=== PATIENT | male | born 1995 | race Caucasian/White ===

== ENCOUNTER 2016-08-08 15:18 | Emergency (ER) | payer OTHER ==
--- NOTE | 2016-08-08 16:23 | DX ---
Left Shoulder , 2 Views History: Pain post trauma. Comparison: May 30, 2016 Findings: There is a recurrent anterior dislocation of the left humeral head. There may be a Hill-Sac hs deformity. A small bony density projecting medially to the upper humeral head may represent a smal l anteriorly displaced glenoid fragment. Impression: Anterior dislocation of the left shoulder.
[2016-08-08] MEDS ORDERED: fentaNYL 100 MCG/2 ML INJ IVP ONE ×2 (16:32→16:58)
[2016-08-08] MEDS ORDERED: fentaNYL 100 MCG/2 ML INJ ONE (16:32)
--- NOTE | 2016-08-08 16:57 | EDPHY ---
H & P Stated Complaint: lEFT SHOULDER DISLOCATION. PLAYING THE DRINKING GAME WHEN IT WENT OUT. - Personal History Current Tetanus/Diphtheria Vaccine: Yes Current Tetanus Diphtheria and Acellular Pertussis (TDAP): Yes Tetanus Vaccine Date: < 10 YEARS - Medical/Surgical History Hx Asthma: No Hx Chronic Respiratory Disease: No Hx Diabetes: No Hx Cardiac Disease: No Hx Renal Disease: No Hx Cirrhosis: No Hx Alcoholism: No Hx HIV/AIDS: No Hx Splenectomy or Spleen Trauma: No Other PMH: PMH: new recent diagnosis of epilepsy in April 2015. Shoulder dislocation bilateral. PSH: tonsillectomy - Social History Smoking Status: Current every day smoker Time Seen by Provider: 08/08/16 15:46 HPI/ROS: Chief complaint: Left shoulder dislocation History of present illness: This is a pleasant 20-year-old male who presents to the emergency department for left shoulder dislocation. Patient has a history of recurrent bilateral shoulder dislocations. Today he was playing a game and throwing dice when his shoulder dislocated. He has had pain in it since then. Inability to move it. He denies a history of direct trauma. No report of abnormal coolness or paresthesias in the arm. No other complaints. Review of systems: A 10 point review of systems was obtained and other than described above was negative (Freddy Swift) - Physical Exam Exam: General Appearance: Alert, nontoxic . Eyes: Pupils equal and round no injection. Respiratory: Chest is non tender, lungs are clear to auscultation. Cardiovascular: Regular rate and rhythm, radial pulses 2+ bilaterally Gastrointestinal: Abdomen is soft and non tender, no masses, bowel sounds normal. Musculoskeletal: Obvious deformity left shoulder. The rest left arm is unremarkable with good movement in the elbow, wrist and digits of the hand. Neurological: Alert and oriented. Sensation intact throughout the left arm Skin: No rashes or lesions. (Freddy Swift) Constitutional: Initial Vital Signs Temperature (C) 36.3 C 08/08/16 15:22 Heart Rate 126 H 08/08/16 15:22 Respiratory Rate 17 08/08/16 15:22 Blood Pressure 142/92 H 08/08/16 15:22 O2 Sat (%) 95 08/08/16 15:22 O2 Delivery Mode [Post Room Air Procedure 4th] O2 Delivery Mode [Post Nasal Cannula Procedure 3rd] O2 Delivery Mode [Post Non-Rebreather Mask Procedure 2nd] O2 Delivery Mode [Post Non-Rebreather Mask Procedure 1st] O2 Delivery Mode [Procedural Non-Rebreather Mask 2nd] O2 Delivery Mode [Procedural Non-Rebreather Mask 1st] O2 Delivery Mode [.Immediate Non-Rebreather Mask Pre-Procedure] O2 Delivery Mode Room Air O2 (L/minute) [Post Procedure 2 3rd] O2 (L/minute) [Post Procedure 15 2nd] O2 (L/minute) [Post Procedure 15 1st] O2 (L/minute) [Procedural 2nd] 15 O2 (L/minute) [Procedural 1st] 15 O2 (L/minute) [.Immediate Pre- 15 Procedure] O2 (L/minute) 2 Allergies/Adverse Reactions: No Known Allergies Allergy (Unverified 03/31/16 20:29) Home Medications: Medication Instructions Recorded Keppra 02/11/16 VIMPAT 08/08/16 Medical Decision Making - Diagnostics Imaging: X-ray left shoulder shows an anterior dislocation Post reduction x-ray shows good anatomic alignment (Freddy Swift) Procedures: Conscious sedation performed by my attending physician Dr. Ron Shipman Procedure: Dislocation reduction. The shoulder was reduced in the usual fashion without complications. Post reduction the patient's neurovascular exam is normal. Post reduction x-ray demonstrates reduction of the joint to the anatomic position. The procedure was performed by myself. (Freddy Swift) Procedure: Procedural sedation. Indication: Shoulder dislocation reduction. A pre-sedation evaluation was completed on the patient just prior to the procedure. Patient is an appropriate candidate for procedural sedation with ASA class 1 E. The risks of the sedation were discussed including but not limited to dysrhythmia, need for airway intervention or general anesthesia, disability, ; and verbal consent obtained. A timeout was observed and patient's identity confirmed. The patient was sedated with 110 mg of propofol and 100 mcg of fentanyl. The patient was monitored with continuous pulse oximetry, capnography, and monitor tech. There were no complications and no significant hypoxemia. I remained at the bedside for the sedation. The total time I spent in the procedural sedation was 20 minutes. (Ron Shipman) ED Course/Re-evaluation: Patient seen in conjunction with my secondary supervising physician Dr. Ron Aaron. Patient presents to the emergency department for suspected left shoulder dislocation. The arm is neurovascularly intact. X-ray confirms a dislocation. Ultimately patient is consciously sedated and it is reduced. Post reduction films show good alignment. He remains neurovascularly intact. Patient is discharged home. He declined pain medication. Home care is discussed. Return precautions are given. Patient voiced understanding and agreement with plan. (Freddy Swift) Differential Diagnosis: Included but not limited to contusion, sprain, strain, fracture, joint dislocation (Freddy Swift) - Data Points Medications Given: Discontinued Medications Fentanyl (Sublimaze) 100 mcg IVP EDNOW ONE Stop: 08/08/16 16:33 Last Admin: 08/08/16 16:58 Dose: 100 mcg Fentanyl (Sublimaze) 100 mcg IVP EDNOW ONE Stop: 08/08/16 16:59 Last Admin: 08/08/16 16:59 Dose: 100 mcg Departure - Departure Disposition: Home, Routine, Self-Care Clinical Impression: Shoulder dislocation Condition: Good Instructions: Shoulder Dislocation (ED) Additional Instructions: Follow-up with your orthopedic doctor for recheck If symptoms worsen or new symptoms develop return to the emergency department for recheck Referrals: NONE *PRIMARY CARE P,. [Primary Care Provider] - As per Instructions Adi Suarez MD [Medical Doctor] - As per Instructions
[2016-08-08] MEDS ORDERED: PROPOFOL 200 MG/20 ML VIAL ONE (17:03)
[2016-08-08] MEDS ORDERED: PROPOFOL 200 MG/20 ML VIAL IVP ONE ×3 (17:05→17:08)
--- NOTE | 2016-08-08 17:43 | DX ---
Shoulder Minimum 2 Views CLNLRB L History: Dislocation reduction. Comparison exam: 1 hour 30 minutes prior. Findings: From prior examination, there has been interval reduction in left shoulder dislocation. Ali gnment is currently normal. No fracture identified. Impression: Left shoulder dislocation reduction.
[2016-08-08 18:05] VITALS: BP 119/57; PULSE 76; RESP 18; TEMP 98.1; O2SAT 94
== END 2016-08-08 18:04 | disposition home or self-care (01) ==
PROC: 0RSKXZZ Reposition Left Shoulder Joint, External Approach (ICD-10-PCS; principal; 2016-08-08)
DX: S43.015A Anterior dislocation of left humerus, initial encounter (principal); F17.200 Nicotine dependence, unspecified, uncomplicated; X50.0XXA Overexertion from strenuous movement or load, initial encounter; Y93.89 Activity, other specified
CPT/HCPCS: J2704; J3010

== ENCOUNTER 2016-10-18 10:25 | Emergency (ER) | payer OTHER ==
[2016-10-18] MEDS ORDERED: PROPOFOL 200 MG/20 ML VIAL ONE (10:51)
--- NOTE | 2016-10-18 10:52 | EDPHY ---
H & P Stated Complaint: left shoulder dislocation post siezure Source: Patient, EMS, Old records Exam Limitations: No limitations - Personal History Current Tetanus/Diphtheria Vaccine: Yes Current Tetanus Diphtheria and Acellular Pertussis (TDAP): Yes Tetanus Vaccine Date: < 10 YEARS - Medical/Surgical History Hx Asthma: No Hx Chronic Respiratory Disease: No Hx Diabetes: No Hx Cardiac Disease: No Hx Renal Disease: No Hx Cirrhosis: No Hx Alcoholism: No Hx HIV/AIDS: No Hx Splenectomy or Spleen Trauma: No Other PMH: PMH: new recent diagnosis of epilepsy in April 2015. Shoulder dislocation bilateral. PSH: tonsillectomy - Social History Smoking Status: Current some day smoker HPI/ROS: CHIEF COMPLAINT: Seizure, shoulder dislocation HISTORY OF PRESENT ILLNESS: Patient is a history of epilepsy with prophylaxis of Keppra and Vimpat. He has been taking his medication as prescribed. But today he notes that he had a seizure this morning. EMS was contacted. At the time of arrival he was mildly postictal in complaining of left shoulder pain. He feels he is dislocated. He has no complaints anywhere else other than his left shoulder. Pain is severe. He received 200 mcg of fentanyl IV and route. This has made it tolerable but still painful. He has no numbness or tingling distally. He has a history of recurrent dislocations due to seizures. He has been seen by Dr. Suarez but has refused to proceed surgical intervention. No other associated complaints or modifying factors. PRIOR ORTHO INJURIES: Recurrent shoulder dislocations ESTABLISHED ORTHOPEDIST: Dr. Suarez REVIEW OF SYSTEMS: Ten systems reviewed and are negative unless otherwise noted in the HPI EXAMINATION General Appearance: Alert, no distress ENT: Airway is widely patent. No injury to the tongue. Cardiovascular: Pulses normal throughout. Symmetric radial pulses 2+. Brisk cap refill Neurological: A&O, sensory symmetric, strength symmetric Skin: Warm and dry, no rash. No ecchymosis, lacerations or abrasions. Extremities: The right upper extremity and both lower extremities are intact with normal range of motion. The left upper extremity has deformity to the left shoulder with squaring of the joint. There is tenderness to palpation. Range of motion not tested secondary to dislocation and pain. He is neurovascular intact distal to this suspected dislocation Psychiatric: Mood and affect normal DIFFERENTIAL DIAGNOSES: Including but not limited to shoulder dislocation, shoulder fracture, humeral fracture, AC sprain, seizure, closed head injury MDM: 10:40 a.m. Reports a seizure with left shoulder pain and obvious dislocation on examination. He is neurovascular intact distally. He has no headache. No chest pain. No back pain. X-ray did does reveal a dislocated shoulder on the left without any obvious fracture. We will plan for sedation and reduction. 11:40 a.m. Patient is awake and conversing appropriately. Post reduction film reveals anatomic alignment with good reduction. No obvious fracture by my interpretation. Radiology interpretation pending. He remains neurovascular intact in a sling and swath. Upon further discussion with the patient and his girlfriend is now at bedside, he admits to not taking his Keppra this morning because he is out of it. They were actually on the way to the pharmacy before this happened. He did not recall this earlier during his postictal state. He did take his Vimpat last night as prescribed. We will provide IV dosing here. He will be discharged home and will proceed directly to the pharmacy to take his medication further. He is also referred to Orthopedics for consultation for definitive care of the recurrent shoulder dislocations. PROCEDURE: Closed reduction of shoulder dislocation Consent: Verbal Location: Left shoulder Anesthesia: Procedural sedation by Dr. Valadez Procedure: After time-out, procedural sedation was administered by Dr. Valadez. Reduction of the shoulder was performed by me personally. This was done with traction, counter traction and external rotation. There was excellent reduction without complication. He was neurovascular intact post reduction with brisk cap refill and 2+ radial pulse. Complications: None Post-reduction film: Adequate reduction as interpreted by me. ED Precautions: Worsening pain. Erythema, edema, cyanosis, pallor, paresthesia or anesthesia. SUPERVISION: This patient was independently evaluated without direct examination by the attending physician. Case was discussed with attending physician. Procedural sedation by Dr. Valadez. (Waylon Alvarez) Constitutional: Initial Vital Signs Temperature (C) 98.2 F 10/18/16 10:25 Heart Rate 102 H 10/18/16 10:25 Respiratory Rate 20 10/18/16 10:25 Blood Pressure 156/103 H 10/18/16 10:25 O2 Sat (%) 95 10/18/16 10:25 O2 Delivery Mode [Post Non-Rebreather Mask Procedure 2nd] O2 Delivery Mode [Post Non-Rebreather Mask Procedure 1st] O2 Delivery Mode [Procedural Non-Rebreather Mask 2nd] O2 Delivery Mode [Procedural Non-Rebreather Mask 1st] O2 Delivery Mode Room Air O2 (L/minute) [Post Procedure 10 2nd] O2 (L/minute) [Post Procedure 10 1st] O2 (L/minute) [Procedural 2nd] 10 O2 (L/minute) [Procedural 1st] 10 Allergies/Adverse Reactions: No Known Allergies Allergy (Verified 10/18/16 10:34) Home Medications: Medication Instructions Recorded Keppra 02/11/16 VIMPAT 08/08/16 oxyCODONE HCL/ACETAMINOPHEN 1 each PO Q4-6PRN PRN #14 tablet 10/18/16 [Percocet 5-325 mg Tablet] Medical Decision Making Other Provider: Procedure: Conscious sedation. Indication: Shoulder dislocation reduction. The patient is an appropriate candidate to tolerate procedural sedation. The patient's vitals signs and mental status are appropriate. The risks, benefits and alternatives of the sedation were discussed with the patient. The patient is ASA classification 1. The patient's Mallampati airway score was 1 and the patient did meet the 3-3-2 airway measurements. A time out was completed. The patient was sedated with 110mg IV Propofol and 25mg IV Ketamine. The patient was monitored with continuous pulse oximetry, gambling monitor and end tidal CO2. There were no complications and no significant hypoxemia. I performed the sedation and RADHA Alvarez performed the reduction. The total time I spent at the bedside during the procedural sedation was 20 minutes. The patient was examined after the procedural sedation and has returned to their pre-sedation baseline with normal vital signs and a normal examination. (Dakota Valadez) - Data Points Laboratory Results: Laboratory Results 10/18/16 10:37 10/18/16 10:37 10/18/16 10/18/16 10/18/16 10:37 10:37 10:37 WBC 9.36 10^3/uL 10^3/uL (3.80-9.50) RBC 5.43 10^6/uL 10^6/uL (4.40-6.38) Hgb 16.8 g/dL g/dL (13.7-17.5) Hct 47.8 % % (40.0-51.0) MCV 88.0 fL fL (81.5-99.8) MCH 30.9 pg pg (27.9-34.1) MCHC 35.1 g/dL g/dL (32.4-36.7) RDW 11.7 % % (11.5-15.2) Plt Count 296 10^3/uL 10^3/uL (150-400) MPV 9.8 fL fL (8.7-11.7) Neut % (Auto) 69.3 % % (39.3-74.2) Lymph % (Auto) 17.8 % % (15.0-45.0) [place] % (Auto) 7.9 % % (4.5-13.0) Eos % (Auto) 3.5 % % (0.6-7.6) Baso % (Auto) 0.9 % % (0.3-1.7) Nucleat RBC Rel Count 0.0 % % (0.0-0.2) Absolute Neuts (auto) 6.48 10^3/uL 10^3/uL (1.70-6.50) Absolute Lymphs (auto) 1.67 10^3/uL 10^3/uL (1.00-3.00) Absolute Monos (auto) 0.74 10^3/uL 10^3/uL (0.30-0.80) Absolute Eos (auto) 0.33 10^3/uL 10^3/uL (0.03-0.40) Absolute Basos (auto) 0.08 10^3/uL 10^3/uL (0.02-0.10) Absolute Nucleated RBC 0.00 10^3/uL 10^3/uL (0-0.01) Immature Gran % 0.6 % % (0.0-1.1) Immature Gran # 0.06 10^3/uL 10^3/uL (0.00-0.10) Sodium 139 mEq/L mEq/L (134-144) Potassium 5.1 mEq/L mEq/L (3.5-5.2) Chloride 106 mEq/L mEq/L (97-110) Carbon Dioxide 19 mEq/l L mEq/l (22-31) Anion Gap 14 mEq/L mEq/L (8-16) BUN 17 mg/dL mg/dL (7-23) Creatinine 0.9 mg/dL mg/dL (0.7-1.3) Estimated GFR > 60 Glucose 179 mg/dL H mg/dL (70-100) Calcium 9.7 mg/dL mg/dL (8.5-10.4) Magnesium 1.8 mg/dL mg/dL (1.6-2.3) Levetiracetam Pending Departure - Departure Disposition: Home, Routine, Self-Care Clinical Impression: Recurrent seizures Dislocation of shoulder, left, closed Qualifiers: Encounter type: initial encounter Qualified Code(s): S43.005A - Unspecified dislocation of left shoulder joint, initial encounter Condition: Good Instructions: Shoulder Dislocation (ED) Additional Instructions: Keep sling in place for the next 24-48 hours. Remove for range of motion of the elbow only. Follow up with established Orthopedics orthopedics telephone technician as listed. Referrals: Patient,NotPresent [Unknown] - As per Instructions Adi Suarez MD [Medical Doctor] - As per Instructions Benny Caldwell MD [Medical Doctor] - As per Instructions Prescriptions: oxyCODONE HCL/ACETAMINOPHEN [Percocet 5-325 mg Tablet] 1 each PO Q4-6PRN PRN # 14 tablet PRN Reason: Pain, Breakthrough
[2016-10-18 10:59] LABS: % IMMATURE GRANULYOCYTES 0.6 % (0.0-1.1); ABSOLUTE IMMATURE GRANULOCYTES 0.06 10^3/uL (0.00-0.10); ADD DIFF? NO; ADD MORPH? NO; ADD SCAN? NO; ANION GAP 14 mEq/L (8-16); ATYPICAL LYMPHOCYTE FLAG 30 (0-99); CALCIUM 9.7 mg/dL (8.5-10.4); CARBON DIOXIDE 19 mEq/l (22-31); CHLORIDE 106 mEq/L (97-110); CREATININE 0.9 mg/dL (0.7-1.3); FRAGMENT RBC FLAG 0 (0-99); GLOMERULAR FILTRATION RATE > 60; GLUCOSE 179 mg/dL (70-100); HEMATOCRIT 47.8 % (40.0-51.0); HEMOGLOBIN 16.8 g/dL (13.7-17.5); LEFT SHIFT FLG 0 (0-99); LIPEMIA HEMOLYSIS FLAG 90 (0-99); MAGNESIUM 1.8 mg/dL (1.6-2.3); MEAN CELL HEMOGLOBIN 30.9 pg (27.9-34.1); MEAN CELL HEMOGLOBIN CONCENTR. 35.1 g/dL (32.4-36.7); MEAN PLATELET VOLUME 9.8 fL (8.7-11.7); PLATELET CLUMPS FLAG 0 (0-99); PLATELET COUNT 296 10^3/uL (150-400); POTASSIUM 5.1 mEq/L (3.5-5.2); RED BLOOD CELL COUNT 5.43 10^6/uL (4.40-6.38); RED CELL DISTRIBUTION WIDTH 11.7 % (11.5-15.2); SODIUM 139 mEq/L (134-144)
[2016-10-18] MEDS ORDERED: KETAMINE 500 MG/10 ML VIAL ONE (11:07)
[2016-10-18] MEDS ORDERED: KETAMINE 100 MG/10 ML SYR IVP ONE (11:07)
[2016-10-18] MEDS ORDERED: fentaNYL 100 MCG/2 ML INJ ONE ×2 (11:08→11:09)
[2016-10-18] MEDS ORDERED: LACOSAMIDE 200 MG in NS 50 ML IV ONE (11:22)
[2016-10-18] MEDS ORDERED: levETIRAcetam 500 MG in NS 100 ML IV ONE (11:38)
[2016-10-18 12:07] VITALS: BP 116/83; PULSE 66; RESP 16; TEMP 98.4; O2SAT 96
== END 2016-10-18 12:28 | disposition home or self-care (01) ==
LOC: EDUNIT#
PROC: 0RSK3ZZ Reposition Left Shoulder Joint, Percutaneous Approach (ICD-10-PCS; principal; 2016-10-18)
DX: M24.412 Recurrent dislocation, left shoulder (principal); G40.909 Epilepsy, unspecified, not intractable, without status epilepticus; F17.200 Nicotine dependence, unspecified, uncomplicated
CPT/HCPCS: 80177-90; 96365; J1953; J2704; J3010

== ENCOUNTER 2016-10-23 06:55 | Emergency (ER) | payer OTHER ==
--- NOTE | 2016-10-23 07:19 | EDPHY ---
H & P Stated Complaint: L SHOULDER POSS DISLOCATION WHILE SLEEPING Time Seen by Provider: 10/23/16 07:05 - Personal History Current Tetanus/Diphtheria Vaccine: Yes Current Tetanus Diphtheria and Acellular Pertussis (TDAP): Yes Tetanus Vaccine Date: < 10 YEARS - Medical/Surgical History Hx Asthma: No Hx Chronic Respiratory Disease: No Hx Diabetes: No Hx Cardiac Disease: No Hx Renal Disease: No Hx Cirrhosis: No Hx Alcoholism: No Hx HIV/AIDS: No Hx Splenectomy or Spleen Trauma: No Other PMH: PMH: new recent diagnosis of epilepsy in April 2015. Shoulder dislocation bilateral. PSH: tonsillectomy - Social History Smoking Status: Current some day smoker Constitutional: Initial Vital Signs Temperature (C) 36.7 C 10/23/16 06:56 Heart Rate 85 10/23/16 06:56 Respiratory Rate 18 10/23/16 06:56 Blood Pressure 135/81 H 10/23/16 06:56 O2 Sat (%) 95 10/23/16 06:56 O2 Delivery Mode [Procedural Room Air 2nd] O2 Delivery Mode [Post Oxymask Procedure 1st] O2 Delivery Mode [Procedural Oxymask 1st] O2 Delivery Mode Room Air O2 (L/minute) [Procedural 1st] 6 Allergies/Adverse Reactions: No Known Allergies Allergy (Verified 10/23/16 06:57) Home Medications: Medication Instructions Recorded Keppra 02/11/16 VIMPAT 08/08/16 Medical Decision Making ED Course/Re-evaluation: CHIEF COMPLAINT: Dislocated shoulder HISTORY OF PRESENT ILLNESS: The patient is a 21 y/o male with a history of seizure disorder and multiple shoulder dislocations who arrives this morning complaining of his "21st" left shoulder dislocation. He reports he tends to dislocate his shoulder during seizures, but he does not believe he had a seizure last night. He has not taken his Keppra yet today. His girlfriend reports he has to take his Keppra within an hour of waking or he usually will have a seizure. He normally takes 4 doses of 750mg extended-release Keppra. REVIEW OF SYSTEMS: A 10 point review of systems was performed and is negative with the exception of the elements mentioned in the history of present illness. PHYSICAL EXAM: General Appearance: Alert, well hydrated, appropriate, and non-toxic appearing. Head: Atraumatic without scalp tenderness or obvious injury Eyes: Pupils equal, round, reactive to light and accommodation, EOMI, no trauma , no injection. Ears: Clear bilaterally, no perforation, normal landmarks Nose: Atraumatic, no rhinorrhea, clear. Throat: mucus membranes moist. Neck: Supple, non-tender, no lymphadenopathy. Respiratory: No retractions, no distress, no wheezes, and no accessory muscle use. Lungs are clear to auscultation bilaterally. Cardiovascular: Regular rate and rhythm, no murmurs, rubs, or gallops. Good capillary refill all extremities. Gastrointestinal: Abdomen is soft, non-tender, non-distended, no masses, no rebound, no guarding, no peritoneal signs. Musculoskeletal: Left shoulder dislocated anteriorly. Otherwise normal active ROM of all extremities, atraumatic. Neurological: Alert, appropriate, and interactive. The patient has normal DTRs and non-focal cranial nerves, motor, sensory, and cerebellar exam. Skin: No rashes, good turgor, no nodules on palpation. PAST MEDICAL HISTORY: Seizure disorder, multiple shoulder dislocations PAST SURGICAL HISTORY: Tonsillectomy Prior medical records reviewed including previous ED visit 10/18/16 for the same presentation. SOCIAL HISTORY: Friend at bedside. From [employer]. [employer] Student. DIAGNOSTICS/PROCEDURES/CRITICAL CARE TIME: 0737: Procedure: Conscious sedation. Indication: Dislocation reduction The patient is an appropriate candidate to tolerate procedural sedation. The patient's vitals signs and mental status are appropriate. The risks, benefits and alternatives of the sedation were discussed with the patient. The patient is ASA classification 1. The patient's Mallampati airway score was 1 and the patient did meet the 3-3-2 airway measurements. A time out was completed. The patient was sedated with 20mg IV Ketamine and 100mg IV Propofol. The patient was monitored with continuous pulse oximetry, pool hall inspector and end tidal CO2. There were no complications and no significant hypoxemia. I performed both the sedation and the procedure. The total time I spent at the bedside during the procedural sedation was 20 minutes. The patient was examined after the procedural sedation and has returned to their pre-sedation baseline with normal vital signs and a normal examination. Procedure: Reduction of dislocated left shoulder Time-out completed immediately before the procedure. IV established. O2 administered. Placed on pulse oximeter and [id number]. Neurovascular exam intact pre-procedure. Given 20mg IV Ketamine for pain and 100mg IV Propofol for sedation. The right shoulder was reduced using traction-countertraction. Reassessed post-procedure. Neurovascular status intact- normal median, radial, ulnar and axillary nerve motor and sensory exam. Exam indicated reduction. Confirmed reduction clinically. Arm sling applied. The procedure was performed by myself, Dr. Trujillo. DIFFERENTIAL DIAGNOSIS: The differential diagnosis for the patient's shoulder pain included but was not limited to anterior shoulder dislocation secondary to seizure, fracture, strain, sprain. MEDICAL DECISION MAKING: This is a 21 y/o male with a history of poorly-controlled seizures arriving with his 21st dislocated left shoulder. He woke up with the dislocation and does not believe he had a seizure last night. On exam, he has an anteriorly dislocated left shoulder and pain with range of motion. No other trauma noted. He is neurovascularly intact. The patient reports he generally requires sedation to relocate the shoulder. We attempted manipulation without sedation without success. Plan for conscious sedation and reduction. Reduction successful during conscious sedation. We will not perform additional x -rays due to his long history of previous dislocations, lack of trauma, and clear clinical assessment indicating appropriately reduced shoulder. He has full range of motion at the joint and is neurovascularly intact following the procedure. We do not have long-acting Keppra available in the hospital to administer the patient's normal dosing schedule. Plan for 1000mg IV Keppra instead with recommendation to take his normal dose as soon as he returns home. I recommended following up with his neurologist for continued break-through seizures and orthopedist when his seizures are better under control. Return precautions given. He is comfortable with this plan. Departure - Departure Disposition: Home, Routine, Self-Care Clinical Impression: Recurrent dislocation, left shoulder Condition: Good Instructions: Shoulder Dislocation (ED) Additional Instructions: 1. Resume normal Keppra dosing upon your return home. 2. Follow up with your neurologist for continued break-through seizures. 3. Return to the ED for any worsening of condition. Referrals: NONE *PRIMARY CARE P,. [Primary Care Provider] - As per Instructions Ron Turk DO [Medical Doctor] - As per Instructions Report Scribed for: Cristiano Trujillo Report Scribed by: Lis Kumar Date of Report: 10/23/16 Time of Report: 07:11
[2016-10-23] MEDS ORDERED: PROPOFOL 200 MG/20 ML VIAL ONE (07:21)
[2016-10-23] MEDS ORDERED: KETAMINE 100 MG/10 ML SYR IVP ONE (07:27)
[2016-10-23] MEDS ORDERED: levETIRAcetam 1,000 MG in NS 100 ML IV ONE (07:46)
[2016-10-23 08:08] VITALS: TEMP 98.4
[2016-10-23 08:34] VITALS: BP 133/97; PULSE 79; RESP 18; O2SAT 96
== END 2016-10-23 08:33 | disposition home or self-care (01) ==
PROC: 0RSKXZZ Reposition Left Shoulder Joint, External Approach (ICD-10-PCS; principal; 2016-10-23)
DX: M24.412 Recurrent dislocation, left shoulder (principal); F17.200 Nicotine dependence, unspecified, uncomplicated; X58.XXXA Exposure to other specified factors, initial encounter
CPT/HCPCS: J1953; J2704

== ENCOUNTER 2017-03-05 10:32 | Emergency (ER) | payer OTHER ==
[2017-03-05] MEDS ORDERED: fentaNYL 100 MCG/2 ML INJ IVP ONE (10:48)
--- NOTE | 2017-03-05 11:04 | EDPHY ---
H & P Stated Complaint: Shouder step off after possible sz. Time Seen by Provider: 03/05/17 11:04 HPI/ROS: CHIEF COMPLAINT: Presumed recurrent seizure, left shoulder dislocation HISTORY OF PRESENT ILLNESS: The patient was found on his apartment for today with a recurrent left shoulder dislocation. The patient has a history of epilepsy. He is currently being treated with Keppra and Vimpat. The patient denies any recent illness. The patient denies any drug or alcohol use. The patient does feel as if he had a seizure earlier today. The patient did not strike his head or lose consciousness. The patient has no complaints of acute headache or neck pain. The patient does complain of a recurrent left shoulder dislocation. The patient denies acute numbness or weakness. The patient reports prior attempts of reduction of his shoulder joint have required conscious sedation. REVIEW OF SYSTEMS: A comprehensive 10 point review of systems is otherwise negative aside from elements mentioned in the history of present illness. Source: Patient Exam Limitations: No limitations - Personal History Current Tetanus/Diphtheria Vaccine: Yes Current Tetanus Diphtheria and Acellular Pertussis (TDAP): Yes Tetanus Vaccine Date: < 10 YEARS - Medical/Surgical History Hx Asthma: No Hx Chronic Respiratory Disease: No Hx Diabetes: No Hx Cardiac Disease: No Hx Renal Disease: No Hx Cirrhosis: No Hx Alcoholism: No Hx HIV/AIDS: No Hx Splenectomy or Spleen Trauma: No Other PMH: PMH: new recent diagnosis of epilepsy in April 2015. Shoulder dislocation bilateral. PSH: tonsillectomy - Social History Smoking Status: Current some day smoker - Physical Exam Exam: General Appearance: Alert, slightly postictal, mild discomfort secondary to pain Eyes: Pupils equal and round no pallor or injection ENT, Mouth: Mucous membranes moist Respiratory: There are no retractions, lungs are clear to auscultation Cardiovascular: Regular rate and rhythm Gastrointestinal: Abdomen is soft and nontender, no masses, bowel sounds normal Neurological: Neurologic function intact throughout the left upper extremity, 5 /5 strength, 2+ radial and ulnar pulses noted Skin: Warm and dry, no rashes Musculoskeletal: Neck is supple nontender Extremities: Dislocation noted of the left glenohumeral joint clinically Constitutional: Initial Vital Signs Temperature (C) 36.6 C 03/05/17 10:37 Heart Rate 99 03/05/17 10:37 Respiratory Rate 20 03/05/17 10:37 Blood Pressure 142/81 H 03/05/17 10:37 O2 Sat (%) 92 03/05/17 10:37 O2 Delivery Mode [Post Room Air Procedure 1st] O2 Delivery Mode [Procedural Non-Rebreather Mask 3rd] O2 Delivery Mode [Procedural Room Air 2nd] O2 Delivery Mode [Procedural Room Air 1st] O2 Delivery Mode [.Immediate Room Air Pre-Procedure] O2 Delivery Mode Room Air O2 (L/minute) [Procedural 3rd] 10 O2 (L/minute) [Procedural 2nd] 10 O2 (L/minute) [Procedural 1st] 10 O2 (L/minute) [.Immediate Pre- 10 Procedure] O2 (L/minute) 10 Allergies/Adverse Reactions: No Known Allergies Allergy (Verified 10/23/16 06:57) Home Medications: Medication Instructions Recorded Keppra 02/11/16 VIMPAT 08/08/16 Medical Decision Making - Diagnostics Imaging Results: Imaging Impressions Shoulder X-Ray 03/05/17 10:40 Impression: Recurrent anterior shoulder dislocation. Shoulder X-Ray 03/05/17 11:27 Impression: Successful reduction. Procedures: Procedure: Conscious sedation. Indication: Reduction of left shoulder dislocation The patient is an appropriate candidate to tolerate procedural sedation. The patient's vital signs and mental status are appropriate. The risks, benefits and alternatives of the sedation were discussed with the patient. The patient is ASA classification 1. The patient's Mallampati airway score was 1 and the patient did meet the 3-3-2 airway measurements. A time out was completed. The patient was sedated with 120 mg of propofol. The patient was monitored with continuous pulse oximetry, threat monitoring analyst and end tidal CO2. There were no complications and no significant hypoxemia. I performed both the sedation and the procedure. The total time I spent at the bedside during the procedural sedation was 17 minutes. The patient was examined after the procedural sedation and has returned to their pre-sedation baseline with normal vital signs and a normal examination. Procedure: Dislocation reduction. Indication: Dislocation The left shoulder was reduced in the usual fashion without complications. Post reduction the patient's neurovascular exam is normal. Post reduction x-ray demonstrates reduction of the joint to the anatomic position. The procedure was performed by myself. ED Course/Re-evaluation: The patient had an IV established. He received 100 mcg of fentanyl for pain relief. A shoulder x-ray does confirm a recurrent left shoulder dislocation. The patient was moved into the resuscitation room where he verbally consented for conscious sedation. He received a total of 120 mg of propofol. I was able to reduce his left shoulder joint using gentle traction and counter traction. The patient recovered from the procedure well. He was observed in the emergency department with no recurrent seizure activity. The patient will continue his regular dose of Keppra and Vipmat. He will follow up with his regular neurologist as scheduled. The patient is instructed to return to the emergency department for severe headache, recurrent seizure, the development of new acute painful symptoms or other concerns. Differential Diagnosis: Differential diagnosis considered includes status epilepticus, shoulder fracture , dislocation, neurovascular injury - Data Points Medications Given: Discontinued Medications Fentanyl (Sublimaze) 100 mcg IVP EDNOW ONE Stop: 03/05/17 10:49 Last Admin: 03/05/17 10:53 Dose: 100 mcg Propofol (Diprivan) 140 mg IVP EDNOW ONE Stop: 03/05/17 11:16 Last Admin: 03/05/17 11:15 Dose: 140 mg Departure - Departure Disposition: Home, Routine, Self-Care Clinical Impression: Seizure, Shoulder dislocation Condition: Good Instructions: Epilepsy (ED) Additional Instructions: 1. No driving, dangerous activities such as riding a ski lift, swimming in a pool or other behavior that could put you or someone else at risk in the event of a recurrent seizure. You will need to be cleared by a neurologist to resume these activities. 2. Please return to the ED for recurrent seizure, headache, numbness, weakness, altered mental status or other concerns. 3. Please follow up with neurologist as scheduled. 4. Wear sling for comfort. 5. Take Ibuprofen or Motrin 600 mg by mouth three times a day.
[2017-03-05] MEDS ORDERED: PROPOFOL 200 MG/20 ML VIAL ONE (11:10)
[2017-03-05] MEDS ORDERED: PROPOFOL 200 MG/20 ML VIAL IVP ONE (11:15)
[2017-03-05] MEDS ORDERED: KETAMINE 100 MG/10 ML SYR ONE (11:25)
[2017-03-05 12:16] VITALS: BP 144/84; PULSE 70; RESP 16; O2SAT 93
[2017-03-05 12:34] VITALS: TEMP 98.2
== END 2017-03-05 12:33 | disposition home or self-care (01) ==
LOC: EDUNIT#
DX: M24.412 Recurrent dislocation, left shoulder (principal); G40.909 Epilepsy, unspecified, not intractable, without status epilepticus; F17.200 Nicotine dependence, unspecified, uncomplicated
CPT/HCPCS: 96374; J2704; J3010

== ENCOUNTER 2017-03-19 04:15 | Emergency (ER) | payer OTHER ==
--- NOTE | 2017-03-19 04:23 | EDPHY ---
H & P HPI/ROS: HPI CHIEF COMPLAINT: Left shoulder pain, possible dislocation HISTORY OF PRESENT ILLNESS: This patient 21-year-old male, otherwise healthy does have significant past medical history for seizure disorder, and recurrent shoulder dislocations. He states over 20 times. Presents emergency room by EMS with left shoulder discomfort. He thinks his left shoulder is dislocated. Woke from sleep like this. No seizure activity. Denies any other areas of injury. States he had 4 beers this evening. Past Medical History: Recurrent shoulder dislocations, seizure disorder Past Surgical History: No recent surgery Social History: Student, [employer], occasional alcohol, daily use of drugs or tobacco. Family History: Noncontributory ROS REVIEW OF SYSTEMS: A comprehensive 10 point review of systems is otherwise negative aside from elements mentioned in the history of present illness. Exam Constitutional appears well nontoxic triage nursing summary reviewed, vital signs reviewed, awake/alert. Eyes normal conjunctivae and sclera, EOMI, PERRLA. HENT normal inspection, atraumatic, moist mucus membranes, no epistaxis, neck supple/ no meningismus, no raccoon eyes. Respiratory clear to auscultation bilaterally, normal breath sounds, no respiratory distress, no wheezing. Cardiovascular rate normal, regular rhythm, no murmur, no edema, distal pulses normal. Gastrointestinal soft, non-tender, no rebound, no guarding, normal bowel sounds, no distension, no pulsatile mass. Genitourinary no CVA tenderness. Musculoskeletal no midline vertebral tenderness, full range of motion, no calf swelling, no tenderness of extremities, no meningismus, good pulses, neurovascularly intact. Left arm: Distally neurovascular intact, good radial pulse, good cap refill, limited range of motion due to the shoulder described. Palpable most likely anterior left shoulder dislocation. Skin pink, warm, & dry, no rash, skin atraumatic. Neurologic awake, alert and oriented x 3, AAOx3, moves all 4 extremities equally, motor intact, sensory intact, CN II-XII intact, normal cerebellar, normal vision, normal speech. Psychiatric normal mood/affect. Heme/Lymph/Immune no lymphadenopathy. Differential Diagnosis: Includes but is not limited to in a particular order left shoulder dislocation anterior, shoulder control a shoulder strain, fracture Medical Decision Making: Plan for this patient IV fentanyl for pain control. And then manual reduction of left shoulder dislocation. Left shoulder x-ray. Re-evaluation: 0429AM: I did make 2 attempts to manage reduce this shoulder without conscious sedation however patient does not tolerated. Received 150 mcg of IV fentanyl. Given that to attempts. I will proceed with conscious sedation. Procedure: Procedural sedation. Indication: Left anterior shoulder dislocation A pre-sedation evaluation was completed on the patient just prior to the procedure. Patient is an appropriate candidate for procedural sedation with ASA class 1 E. The risks of the sedation were discussed including but not limited to dysrhythmia, need for airway intervention or general anesthesia, disability, ; and verbal consent obtained. A timeout was observed and patient's identity confirmed. The patient was sedated with IV 70 MG propofol. The patient was monitored with continuous pulse oximetry, capnography, and portal administrator. There were no complications and no significant hypoxemia. I remained at the bedside for the sedation. The total time I spent in the procedural sedation was 35 minutes. The patient tolerated 70 mg IV propofol well. He had a good conscious sedation there were no complications. I was able to relocate his dislocated left shoulder. ED x-ray left shoulder reviewed. No malalignment. No fracture. Relocation of the left shoulder joint. Patient is neurovascular intact on re-examination. Sling provided. Feels better. Source: Patient, EMS - Personal History Tetanus Vaccine Date: < 10 YEARS - Medical/Surgical History Hx Asthma: No Hx Chronic Respiratory Disease: No Hx Diabetes: No Hx Cardiac Disease: No Hx Renal Disease: No Hx Cirrhosis: No Hx Alcoholism: No Hx HIV/AIDS: No Hx Splenectomy or Spleen Trauma: No Other PMH: PMH: new recent diagnosis of epilepsy in April 2015. Shoulder dislocation bilateral. PSH: tonsillectomy - Social History Smoking Status: Current some day smoker Constitutional: Initial Vital Signs Temperature (C) 36.7 C 03/19/17 04:23 Heart Rate 65 03/19/17 04:23 Respiratory Rate 16 03/19/17 04:23 Blood Pressure 134/77 H 03/19/17 04:23 O2 Sat (%) 94 03/19/17 04:23 O2 Delivery Mode Room Air Allergies/Adverse Reactions: No Known Allergies Allergy (Verified 03/19/17 04:22) Home Medications: Medication Instructions Recorded Kemathew 02/11/16 VIMPAT 08/08/16 Medical Decision Making - Data Points Medications Given: Discontinued Medications Fentanyl (Sublimaze) 50 mcg IVP EDNOW ONE Stop: 03/19/17 04:26 Last Admin: 03/19/17 04:26 Dose: 50 mcg Propofol (Diprivan) 70 mg IVP EDNOW ONE Stop: 03/19/17 04:41 Last Admin: 03/19/17 04:35 Dose: 70 mg Departure - Departure Disposition: Home, Routine, Self-Care Clinical Impression: Shoulder dislocation Qualifiers: Encounter type: initial encounter Laterality: left Qualified Code(s): S43.005A - Unspecified dislocation of left shoulder joint, initial encounter Condition: Good Instructions: Shoulder Dislocation (ED) Referrals: Patient,NotPresent [Unknown] - As per Instructions Fatimah Urbina MD [Medical Doctor] - As per Instructions
[2017-03-19] MEDS ORDERED: fentaNYL 100 MCG/2 ML INJ IVP ONE (04:25)
[2017-03-19 04:29] VITALS: RESP 16
[2017-03-19] MEDS ORDERED: PROPOFOL 200 MG/20 ML VIAL ONE (04:29)
[2017-03-19] MEDS ORDERED: PROPOFOL 200 MG/20 ML VIAL IVP ONE (04:40)
[2017-03-19 06:05] VITALS: TEMP 98.6
[2017-03-19 06:58] VITALS: BP 134/74; PULSE 70; O2SAT 100
== END 2017-03-19 06:05 | disposition home or self-care (01) ==
LOC: EDBD → EDUNIT#
PROC: 0RSKXZZ Reposition Left Shoulder Joint, External Approach (ICD-10-PCS; principal; 2017-03-19)
DX: M24.412 Recurrent dislocation, left shoulder (principal); F17.200 Nicotine dependence, unspecified, uncomplicated
CPT/HCPCS: A4565; J2704; J3010

== ENCOUNTER 2018-06-05 14:16 | Emergency (ER) | payer OTHER ==
[2018-06-05 14:23] VITALS: BP 134/80
--- NOTE | 2018-06-05 15:12 | EDPHY ---
H & P Time Seen by Provider: 06/05/18 14:31 HPI/ROS: HPI Right shoulder dislocation. 22-year-old male by private vehicle with his girlfriend. This patient has a history of a seizure disorder as well as bilateral shoulder dislocations multiple times. The patient reports that he is ambidextrous. He reports that he was reaching into a dry her to remove some close behind into the side of him with an outstretched right upper extremity stretching his arm posteriorly and laterally when he dislocated his right shoulder. He denies any loss of sensation or weakness in his hand. No other complaint or injury. ROS: Constitutional: No fever, no chills. No weakness. Musculoskeletal: No back pain. No neck pain. As above. Skin: No lacerations or abrasions. Neurological: No headache. No focal weakness or altered sensation. Past medical history: Epilepsy, bilateral shoulder dislocations, Social history: Nonsmoker. Here with his girlfriend. No alcohol. Physical Exam: General Appearance: Alert, no distress. This patient is responding to questions appropriately and in full sentences. This patient appears well- hydrated and well-nourished. Eyes: Pupils equal and round no pallor or injection. No lid edema, erythema or injection. Right shoulder and upper extremity exam: Significant for an anterior inferior glenohumeral joint dislocation deformity. The axillary nerve distribution is intact. The right upper extremity is neurovascularly intact. Neurological: Motor sensory function is grossly intact. Cranial nerves are normal. Gait is normal. Skin: Warm and dry, no rashes. Musculoskeletal: Neck is supple and nontender. Extremities are symmetrical except noted. All joints range without pain or impingement except noted. Psychiatric: No agitation. No depression. Database: EKG: Imaging: Right shoulder x-ray series: Significant for anterior inferior glenohumeral joint dislocation. Interpreted by me. Right shoulder x-ray series post reduction: Successful reduction of glenohumeral joint with proper anatomical alignment. Interpreted by me. Procedures: Procedure: Dislocation reduction right glenohumeral joint. The shoulder was reduced in the usual fashion without complications. The patient did not require any sedation. Post reduction the patient's neurovascular exam is normal. Post reduction x-ray demonstrates reduction of the joint to the anatomic position. The procedure was performed by myself. Emergency department course: Triage vital signs reviewed. The patient is mildly hypertensive. Vital signs are otherwise normal. Post reduction x-rays discussed with the patient his girlfriend after above procedure. The patient's right upper extremity was placed in a sling. On re-evaluation at 3:25 p.m., he is resting comfortably. He feels much better. No significant pain. Results of x-rays discussed with him. He feels comfortable going home with his girlfriend. I will have him follow up with his credit card specialist. Return to emergency department precautions were reviewed with him. All of his questions were answered. He was discharged from the emergency department in good condition. Differential Diagnosis: The differential diagnosis on this patient includes but is not limited to right glenohumeral joint dislocation. Proximal humerus fracture, clavicle fracture, AC joint injury unlikely. This represents a partial list of diagnoses considered. These considerations are based on history, physical exam, past history, reassessment and diagnostic testing. Smoking Status: Current some day smoker Constitutional: Initial Vital Signs Temperature (C) 36.7 C 06/05/18 14:20 Heart Rate 79 06/05/18 14:20 Respiratory Rate 18 06/05/18 14:20 Blood Pressure 134/80 H 06/05/18 14:20 O2 Sat (%) 97 06/05/18 14:20 O2 Delivery Mode Room Air Allergies/Adverse Reactions: No Known Allergies Allergy (Verified 03/19/17 04:22) Home Medications: Medication Instructions Recorded Depakote 06/05/18 Medical Decision Making - Diagnostics Imaging Results: Imaging Impressions Shoulder X-Ray 06/05/18 14:23 Impression: Findings compatible with anterior shoulder dislocation. Additional images are required for evaluation of Hill-Sachs or bony Bank[place] lesions. Dr. Gaines was notified of these findings by telephone at 2:49 PM on 2017 Shoulder X-Ray 06/05/18 15:04 Impression: Reduction of right shoulder dislocation as described. Departure - Departure Disposition: Home, Routine, Self-Care Clinical Impression: Recurrent dislocation, right shoulder, Shoulder dislocation Condition: Good Instructions: Shoulder Dislocation (ED) Additional Instructions: Read and follow provided instructions. Follow-up with your your credit card specialist or the 1 I have provided for you for re-evaluation within 2-3 days. Ibuprofen dosin mg every 6 hours with meals for the next 3 days only. Take only as needed for pain. Return to the emergency department for worsening pain, loss of sensation, weakness in her right upper extremity or other serious concerns. Referrals: Oswald Thompson MD [Medical Doctor] - As per Instructions
== END 2018-06-05 15:10 | disposition home or self-care (01) ==
PROC: 0RSJXZZ Reposition Right Shoulder Joint, External Approach (ICD-10-PCS; principal; 2018-06-05)
DX: S43.004A Unspecified dislocation of right shoulder joint, initial encounter (principal); M24.419 Recurrent dislocation, unspecified shoulder; G40.909 Epilepsy, unspecified, not intractable, without status epilepticus; X50.9XXA Other and unspecified overexertion or strenuous movements or postures, initial encounter; Y92.9 Unspecified place or not applicable; Y93.9 Activity, unspecified; Y99.9 Unspecified external cause status
CPT/HCPCS: A4565

== ENCOUNTER → 2018-08-18 | Outpatient (CLI) | payer OTHER | LOC: FIMAGING 11:00 | PROVIDERS: ATTEND Orthopaedic Surgery Hand Surgery | DX: M24.411 Recurrent dislocation, right shoulder (principal); M85.9 Disorder of bone density and structure, unspecified ==

== ENCOUNTER → 2018-09-30 | Outpatient (CLI) | payer OTHER | LOC: BMCIMAGING 12:10 | PROVIDERS: ATTEND Orthopaedic Surgery Hand Surgery | DX: M24.411 Recurrent dislocation, right shoulder (principal) ==

== ENCOUNTER → 2018-10-28 | Outpatient (CLI) | payer OTHER | LOC: BMCIMAGING 09:17 | PROVIDERS: ATTEND Orthopaedic Surgery Hand Surgery | DX: Z09 Encounter for follow-up examination after completed treatment for conditions other than malignant neoplasm (principal); Z98.890 Other specified postprocedural states ==

== ENCOUNTER → 2018-12-07 | Outpatient (CLI) | payer OTHER | LOC: BMCIMAGING 10:10 ==